=== PATIENT | female | born 1945 | race Caucasian/White ===

== ENCOUNTER 2024-06-27 00:23 | Emergency (ER) | payer OTHER, SELFPAY ==
--- NOTE | 2024-06-27 | ECG_ITS ---
Test Reason : rojasv Blood Pressure : */* mmHG Vent. Rate : 63 BPM Atrial Rate : 63 BPM P-R Int : 178 ms QRS Dur : 80 ms QT Int : 430 ms P-R-T Axes : 50 22 50 degrees QTcB Int : 440 ms Normal sinus rhythm Septal infarct , age undetermined Abnormal ECG No previous ECGs available Referred By: Generic ED Physician Electronically Signed By: ZAID BARRIOS MD
--- NOTE | ~2024-06-27 | XR_ITS ---
CLINICAL HISTORY: cough 2 view chest x-ray Comparison: None Findings: The lungs are clear. Heart size is normal. No acute fracture. IMPRESSION: 1. No acute findings. This document has been electronically signed by: Azar Mendoza MD, PHD on 06/27/2024 01:26:49
--- NOTE | ~2024-06-27 | CT_ITS ---
CLINICAL HISTORY: acute dizziness, difficulty wlking CT head without contrast Comparison: None Findings: There is age-appropriate atrophy. The size and shape of the ventricular system is within normal limits for degree of atrophy. Mild areas of low-attenuation are identified within the periventricular and deep white matter. Sherwood-white differentiation is well preserved. No midline shift or mass effect. No intracranial hemorrhage. No calvarial fractures. IMPRESSION: 1. No acute intracranial findings. This document has been electronically signed by: Cresencio Villa MD on 06/27/2024 06:10:07
[2024-06-27 00:32] VITALS: BP 152/98; PULSE 75; PULSE 80; RESP 18; TEMP 36.8; O2SAT 98; BMI 33.7
[2024-06-27 01:14] LABS: MANUAL DIFF FLAG NO
[2024-06-27 01:18] LABS: Basophils Percent Auto 0.6 % (0-2); Eosinophils Absolute Auto 0.3 X10*3/uL (0.0-0.4); Hematocrit 39.8 % (37.0-47.0); Hemoglobin 13.5 g/dl (12.0-16.0); Imm Gran Abs Auto 0.02 X10*3/uL (0.00-0.03); Imm Gran Pct Auto 0.3 % (0.0-0.4); Lymphocytes Absolute Auto 1.2 X10*3/uL (1.2-4.9); Lymphocytes Percent Auto 17.9 % (20-40); Mean Corpuscular HGB Conc 33.9 g/dl (31.0-35.0); Mean Corpuscular Volume 91.3 fL (80.0-98.0); Mean Platelet Volume 12.2 fL (9.4-12.3); Monocytes Absolute Auto 0.6 X10*3/uL (0.1-1.2); Monocytes Percent Auto 8.7 % (2-11); Neutrophils Absolute Auto 4.7 x10*3/uL (2.0-8.3); Neutrophils Percent Auto 68.5 % (45-73); PLT CLUMP 1; Red Blood Count 4.36 X10*6/uL (4.20-5.50); SCAN SMEAR FLAG 1
[2024-06-27 01:19] LABS: White Blood Count 6.8 X10*3/uL (4.8-10.8)
[2024-06-27 01:28] LABS: Alanine Aminotransferase 27 U/L (0-31); Albumin Level 4.1 g/dL (3.5-5.0); Anion Gap 13 (12-20); Aspartate Amino Transferase 25 U/L (5-31); Bilirubin Total 0.2 mg/dL (0.0-1.0); Blood Urea Nitrogen 19 mg/dL (9-16); Calcium 9.5 mg/dL (8.4-10.2); Carbon Dioxide 23 mmol/L (22-29); Chloride 110 mmol/L (96-108); Creatinine Clr Calc Pharmacy 67.2; Estimated Glomerular Filt Rate > 60; Glucose Random 144 mg/dL (60-115); Potassium 3.8 mmol/L (3.3-5.1); Sodium 142 mmol/L (135-145)
[2024-06-27 01:36] LABS: Troponin-I High Sensitivity < 2.7 ng/L (<3.5-17.0)
[2024-06-27 01:38] LABS: Platelet Count 198 X10*3/uL (160-400)
[2024-06-27 01:51] LABS: Influenza A PCR NEGATIVE (Negative); Influenza B PCR NEGATIVE (Negative); Resp Syncy Virus RNA Qual PCR NEGATIVE (Negative); SARS COV2 PCR INHOUSE NEGATIVE (Negative)
[2024-06-27 01:57] LABS: Alkaline Phosphatase 108 U/L (39-117)
--- NOTE | 2024-06-27 04:56 | ED.GENADULT ---
HPI - General Adult General Chief complaint: Dizziness Stated complaint: dizziness since 2229 & heating up on the inside Time Seen by Provider: 06/27/24 04:56 History of Present Illness ED Provider: Raphael JOHNSON narrative: The patient is a 78-year-old woman who was at home this evening watching TV. She says that she got up to turn the TV off when she suddenly felt that the room was spinning. She was able to get herself up stairs with some difficulty to her bedroom but when she laid down the room spinning dizziness returned. She set up for awhile and then again tried to lie down but again the severe room spinning dizziness returned. Ultimately her called an ambulance and she was brought to the hospital. There has been no facial asymmetry. No change in speech. No change in vision. She does not feel that she has any weakness in her arms or legs. Related Data Previous Rx's ?Medication ?Instructions ?Recorded meclizine 25 mg tablet 25 mg PO TID PRN dizziness #20 tabs 06/27/24 Allergies Allergy/AdvReac Type Severity Reaction Status Date / Time Penicillins Allergy Unknown Verified 06/27/24 00:35 sumatriptan Allergy Unknown Verified 06/27/24 00:35 Review of Systems Review of Systems: Yes all other systems are reviewed and are negative PMFSH Social History Social History Advance Directives: No Advance Directives Information Provided: Yes Do you have a plan to hurt others: No Plan Physical Exam ED Vital Signs: Vital Signs - 24 hr 06/27/24 00:32 06/27/24 04:58 06/27/24 06:20 Temperature 98.3 F 98.5 F 97.9 F Pulse Rate 75 75 67 Respiratory Rate 18 14 20 Blood Pressure 152/98 H 134/72 137/62 Pulse Oximetry 98 95 93 Oxygen Delivery Method Room Air Room Air Room Air 06/27/24 07:28 Temperature 97.9 F Pulse Rate 67 Respiratory Rate 20 Blood Pressure 137/62 Pulse Oximetry 93 Oxygen Delivery Method Room Air BMI result Body Mass Index 33.7 Const Other: The patient is awake, alert, pleasant, cooperative. She does not appear in obvious distress. HENMT Other: Face is symmetrical. Tongue is midline. Mucous membranes moist. Eyes Other: No apparent nystagmus. General: appearance normal, both eyes and all related structures Visual Bar: normal visual bar by confrontation Alignment and Position: alignment normal Eyelids: Yes eyelids normal Conjunctivae: conjunctivae normal Pupils: Equal, round and reactive pupils present EOM: EOMs intact bilaterally Neck Neck: Yes full ROM and Yes no JVD Resp Effort & Inspection: normal respiratory effort Auscultation: clear to auscultation bilaterally Cardio Rate: regular rate Rhythm: regular rhythm Heart sounds: S1 normal heart sound present and S2 normal heart sound present GI Other: Abdomen is soft and nontender Skin Other: Skin is intact, dry and unremarkable Neuro Other: The patient is awake and alert with a normal mental status. Eye movements are intact. Pupils are round equal. Visual bar are intact to confrontation. The face is symmetrical. Speech is clear without dysarthria or aphasia. She has 5/5 strength in all 4 extremities. No pronator drift. She has intact finger-nose bilaterally. She has intact he will shift bilaterally. Sensory function is intact. NIH stroke scale is 0. Cranial nerves: Yes Equal, round and reactive pupils present Extrem Other: No peripheral edema. Medications Administered Discontinued Medications Generic Name Dose Route Start Last Admin Trade Name [place] PRN Reason Stop Dose Admin Meclizine HCl 25 mg 06/27/24 05:06 06/27/24 05:18 Meclizine Hcl 25 Mg Tablet PO 06/27/24 05:07 25 mg ONCE ONE Administration Medical Decision Making Medical Decision Making [facility] Narrative: The patient presents with acute symptoms of room spinning dizziness that makes walking difficult. The symptoms are positional. I suspect this is peripheral vertigo. She has a negative head CT. Labs are unremarkable. She got somewhat better with meclizine. She was offered the option of staying in the emergency room see a physical therapist but she would prefer to go home because she was feeling better. She will be prescribed meclizine. She should follow up with her PCP. She should return if worse. Lab Data 06/27/24 01:05 06/27/24 01:05 Labs: Lab Results 06/27/24 Range/Units 01:05 WBC 6.8 (4.8-10.8) X10*3/uL RBC 4.36 (4.20-5.50) X10*6/uL Hgb 13.5 (12.0-16.0) g/dl Hct 39.8 (37.0-47.0) % MCV 91.3 (80.0-98.0) fL MCH 31.0 (27.0-33.0) pg MCHC 33.9 (31.0-35.0) g/dl RDW 12.0 (11.0-16.0) % Plt Count 198 (160-400) X10*3/uL MPV 12.2 (9.4-12.3) fL Immature Gran % (Auto) 0.3 (0.0-0.4) % Neut % (Auto) 68.5 (45-73) % Lymph % (Auto) 17.9 L (20-40) % [place] % (Auto) 8.7 (2-11) % Eos % (Auto) 4.0 (0-4) % Baso % (Auto) 0.6 (0-2) % Lymph # (Auto) 1.2 (1.2-4.9) X10*3/uL [place]ler # (Auto) 0.6 (0.1-1.2) X10*3/uL Eos # (Auto) 0.3 (0.0-0.4) X10*3/uL Baso # (Auto) 0.0 (0.0-0.2) X10*3/uL Abs Immat Gran (auto) 0.02 (0.00-0.03) X10*3/uL Absolute Neuts (auto) 4.7 (2.0-8.3) x10*3/uL Absolute Nucleated RBC 0.000 (0.0-0.012) X10*3/uL Nucleated RBC % (auto) 0.0 (0.0-0.2) /100WBC Sodium 142 (135-145) mmol/L Potassium 3.8 (3.3-5.1) mmol/L Chloride 110 H (96-108) mmol/L Carbon Dioxide 23 (22-29) mmol/L Anion Gap 13 (12-20) BUN 19 H (9-16) mg/dL Creatinine 0.73 (0.5-1.4) mg/dL Estim Creat Clear Calc 67.2 Estimated GFR > 60 Random Glucose 144 H (60-115) mg/dL Calcium 9.5 (8.4-10.2) mg/dL Total Bilirubin 0.2 (0.0-1.0) mg/dL AST 25 (5-31) U/L ALT 27 (0-31) U/L Alkaline Phosphatase 108 (39-117) U/L Troponin I High Sens < 2.7 (<3.5-17.0) ng/L Total Protein 7.0 (6.5-8.0) g/dL Albumin 4.1 (3.5-5.0) g/dL Influenza Type A (PCR) NEGATIVE (Negative) Influenza Type B (PCR) NEGATIVE (Negative) RSV RNA Qual (PCR) NEGATIVE (Negative) SARS-CoV-2 RNA (RT-PCR) NEGATIVE (Negative) Independent Interpretation I performed an independent interpretation of an: EKG Interpretation: EKG at 01:42 shows normal sinus rhythm at 63 beats per minute. No old EKGs available for comparison. No definite acute ischemic changes. Discharge Plan Discharge Clinical Impression: Vertigo Patient Disposition: Home, Self-Care Instructions: Vertigo (ED) Additional Instructions: I believe you are experiencing the phenomenon of vertigo. Vertigo of this type is a dysfunction of the inner ear which is the gyroscope of the body. The medication meclizine can be helpful for dizziness symptoms. You may use the prescribed meclizine up to 3 times per day as needed. Please contact your regular doctor's office for a follow up appointment. Physical therapist can do exercises to help with vertigo symptoms. Contact your regular doctor's office and consider a referral to physical therapy. Return to the emergency room if significantly worse. Prescriptions: New meclizine 25 mg tablet 25 mg PO TID PRN (Reason: dizziness) Qty: 20 0RF Referrals: Justine Leon MD [Primary Care Provider] - (vertigo ) Interventions: ED Discharge Assessment Last Done: 06/27/24 07:28 Discharge Date/Time: 06/27/24 07:28 Print Language: [place]
[2024-06-27 04:58] VITALS: BP 134/72; PULSE 75; RESP 14; TEMP 36.9; O2SAT 95
[2024-06-27] MEDS: Meclizine HCl 25 MG TABLET PO (05:18)
[2024-06-27 06:20] VITALS: BP 137/62; PULSE 67; RESP 20; TEMP 36.6; O2SAT 93
[2024-06-27 07:28] VITALS: BP 137/62; PULSE 67; RESP 20; TEMP 36.6; O2SAT 93
== END 2024-06-27 07:28 | disposition home or self-care (01) ==
PROVIDERS: Emergency Provider Emergency Medicine; PCP Internal Medicine
DX: R42 Dizziness and giddiness (principal); R94.31 Abnormal electrocardiogram [ECG] [EKG]; R26.2 Difficulty in walking, not elsewhere classified; Z03.818 Encounter for observation for suspected exposure to other biological agents ruled out; Z79.899 Other long term (current) drug therapy
CPT/HCPCS: 0241U; 36415; 70450; 71046; 80053; 84484; 85025; 93005; 99284

== ENCOUNTER → 2024-06-27 01:10 | Outpatient (BNV) | payer SELFPAY | PROVIDERS: Visit Provider General Practice | DX: R42 Dizziness and giddiness (principal); R05.9 Cough, unspecified | CPT/HCPCS: 70450; 71046 ==

== ENCOUNTER → 2024-06-27 01:42 | Outpatient (BNV) | payer OTHER, SELFPAY | PROVIDERS: Emergency Provider Emergency Medicine; PCP Internal Medicine; Visit Provider Internal Medicine Cardiovascular Disease | DX: R94.31 Abnormal electrocardiogram [ECG] [EKG] (principal) | CPT/HCPCS: 93010 ==